=== PATIENT | female | born 1945 | race Caucasian/White ===

== ENCOUNTER 2021-09-02 14:32 | Outpatient (CLI) | payer MEDICARE | END 2021-09-02 14:33 | disposition home or self-care (01) | LOC: CSHMRI 14:32 | PROVIDERS: ATTEND Specialist | DX: M54.16 Radiculopathy, lumbar region (principal); M47.816 Spondylosis without myelopathy or radiculopathy, lumbar region; Z98.890 Other specified postprocedural states; M53.3 Sacrococcygeal disorders, not elsewhere classified; N28.89 Other specified disorders of kidney and ureter | CPT/HCPCS: 72148 ==